=== PATIENT | female | born 1950 | race Caucasian/White ===

== ENCOUNTER → 2017-08-27 17:00 | Outpatient (CLI) | payer MEDICARE, OTHER | END | disposition home or self-care (01) | LOC: D.MAMMO 08-23 15:45 | DX: Z12.31 Encounter for screening mammogram for malignant neoplasm of breast (principal) ==

== ENCOUNTER 2018-07-05 08:17 | Emergency (ER) | payer MEDICARE, OTHER ==
[~2018-07-05] VITALS: Ht 167.6 cm; Wt 92.3 kg
[2018-07-05 08:26] VITALS: Ht 167.6 cm; Wt 92.3 kg
[2018-07-05] MEDS ORDERED: CLARITIN5 MG/5 ML (08:27)
[2018-07-05] MEDS ORDERED: ADVAIR HFA [SP]12 GM (08:27)
[2018-07-05] MEDS ORDERED: COZAAR100 MG (08:27)
[2018-07-05] MEDS ORDERED: FLUTICASONE PRO16 GM (08:27)
[2018-07-05] MEDS ORDERED: SINGULAIR10 MG (08:27)
[2018-07-05] MEDS ORDERED: TOPROL XL50 MG PO (08:27)
[2018-07-05 08:40] LABS: BASOPHILS 0.4 % (0-2); EOSINOPHILS 2.5 % (0-7); HEMATOCRIT 41.5 % (36.0-48.0); HEMOGLOBIN 14.2 g/dL (12-16); IMMATURE GRANULOCYTES 0.2 % (0-5); LYMPHOCYTES 29.1 % (15-50); MCH 32.2 pg (26.0-34.0); MCHC 34.2 g/dL (31.0-37.0); MCV 94.1 fL (80.0-100.0); MONOCYTES 10.4 % (2-11); NEUTROPHILS 57.4 % (40-80); RBC 4.41 10x6/uL (4.00-5.40); RDW 12.3 % (11.5-14.5); WBC 5.2 10x3/uL (4.8-10.8)
[2018-07-05 09:02] LABS: ALBUMIN 3.7 g/dL (3.4-5.0); ALKALINE PHOSPHATASE 80 U/L (46-116); ALT (SGPT) 25 U/L (10-68); BILIRUBIN - TOTAL 0.46 mg/dL (0.2-1.3); CALC OSMOLALITY 280 mosm/kg (275-300); CALCIUM 8.7 mg/dL (8.5-10.1); CARBON DIOXIDE 24.3 mmol/L (21.0-32.0); CHLORIDE - SERUM 105 mmol/L (98-107); CREATININE - SERUM 0.9 mg/dL (0.6-1.3); GLUCOSE 119 mg/dL (74-106); PLATELET COUNT 282 10x3/uL (130-400); POTASSIUM - SERUM 3.8 mmol/L (3.5-5.1); PROTEIN - SERUM 7.2 g/dL (6.4-8.2); SODIUM 140 mmol/L (136-145); UREA NITROGEN 15 mg/dL (7-18); eGFR NON AFRICAN AMERICAN 66 mL/min (90-120)
[2018-07-05 09:13] LABS: CKMB 1.1 U/L (0.0-3.6); CREATINE KINASE 71 UL (21-215); MAGNESIUM - SERUM 1.9 mg/dL (1.8-2.4); PRO BNP 164 pg/mL (0-125); TROPONIN-I < 0.017 ng/mL (0.000-0.060)
[2018-07-05 12:56] LABS: CREATINE KINASE 66 UL (21-215); TROPONIN-I < 0.017 ng/mL (0.000-0.060)
[2018-07-05] MEDS ORDERED: PROTONIX40 MG PO (13:30)
[2018-07-05 13:51] VITALS: BP 122/74
== END 2018-07-05 13:52 | disposition home or self-care (01) ==
LOC: D.ER 08:17
PROVIDERS: Family Medicine
DX: R07.9 Chest pain, unspecified (principal); K21.9 Gastro-esophageal reflux disease without esophagitis; I10 Essential (primary) hypertension

== ENCOUNTER 2019-01-29 10:31 | Outpatient (CLI) | payer MEDICARE, OTHER ==
[2018-07-05 08:26] VITALS: BMI 32.8
[~2019-01-29 10:31] MED LIST: ADVAIR HFA [SP]12 GM; CLARITIN5 MG/5 ML; COZAAR100 MG; FLUTICASONE PRO16 GM; PROTONIX40 MG PO; SINGULAIR10 MG; TOPROL XL50 MG PO
== END 2019-01-29 23:59 | disposition home or self-care (01) ==
LOC: D.MAMMO 10:31
PROVIDERS: ATTEND Family Medicine
DX: Z12.31 Encounter for screening mammogram for malignant neoplasm of breast (principal)

== ENCOUNTER → 2019-03-23 08:09 | Outpatient (CLI) | payer MEDICARE, OTHER ==
[2018-07-05 08:26] VITALS: BMI 32.8
== END | disposition home or self-care (01) ==
LOC: D.HCCECHO 08:09
PROVIDERS: ATTEND Internal Medicine Cardiovascular Disease
DX: I10 Essential (primary) hypertension (principal)

== ENCOUNTER 2020-07-12 22:12 | Emergency (ER) | payer MEDICARE, OTHER ==
[~2020-07-12] VITALS: Ht 167.6 cm; Wt 94.5 kg
[2020-07-12 22:16] VITALS: Ht 167.6 cm; Wt 94.5 kg
[2020-07-12] MEDS ORDERED: LISINOPRIL5 MG PO (22:18)
[2020-07-12] MEDS ORDERED: FEXOFENADINE HC60 MG PO (22:18)
[2020-07-12] MEDS ORDERED: PREDNISONE20 MG PO (23:11)
[2020-07-12 23:24] VITALS: BP 162/87
== END 2020-07-12 23:25 | disposition home or self-care (01) ==
LOC: D.ER 22:12
DX: G56.01 Carpal tunnel syndrome, right upper limb (principal); I10 Essential (primary) hypertension; J45.909 Unspecified asthma, uncomplicated; M79.641 Pain in right hand